=== PATIENT | male | born 1965 | race Caucasian/White ===

== ENCOUNTER 2018-03-28 19:02 | Observation (INO) | payer OTHER ==
[~2018-03-28] VITALS: Ht 177.8 cm; Wt 109.1 kg
[2018-03-28 19:13] VITALS: BP 160/91; PULSE 60; RESP 18; TEMP 98.7; O2SAT 98
[2018-03-28 19:53] LABS: BLOOD, URINE NEG (NEG); GLUCOSE,URINE 250 mg/dL (NEG); KETONE, URINE TRACE mg/dL (NEG); NITRITE,URINE NEG (NEG); URINE LEUKOCYTE ESTERASE NEG (NEG)
[2018-03-28 19:57] LABS: BILIRUBIN, URINE NEG (NEG); URINE COLOR AMBER (YELLW/STRAW)
[2018-03-28 19:58] LABS: RBC, URINE 0-2 /hpf (0-3); SQUAMOUS EPITHELIAL CELL URINE 0-5 /hpf (0-5); WBC, URINE 0-2 /hpf (0-5)
[2018-03-28 20:45] VITALS: O2SAT 97
[2018-03-28] MEDS ORDERED: MYCO500T PO (20:47)
[2018-03-28] MEDS ORDERED: APIX5TAB PO (20:48)
[2018-03-28] MEDS ORDERED: SODIUM CHLOR 0.9% 1000 ML INJ 1,000 ML IV SCH (20:53)
[2018-03-28 21:00] VITALS: BP 158/85; PULSE 78; RESP 18; O2SAT 98
[2018-03-28] MEDS ORDERED: LIDOCAINE VISCOUS 2% SOLN 15 ML UDC PO ONE (21:00)
[2018-03-28] MEDS ORDERED: FAMOTIDINE 20 MG TAB PO ONE (21:00)
[2018-03-28] MEDS ORDERED: MORPHINE SULFATE 4 MG/ML INJ IV PUSH ONE (21:00)
[2018-03-28] MEDS ORDERED: ALUMINUM/MAGNESIUM/SIMETH 30 ML CUP PO ONE (21:00)
[2018-03-28] MEDS ORDERED: SODIUM CHLORIDE 0.9% FLUSH 10 ML FLUSH IV FLUSH PRN ×2 (21:00→23:30)
--- NOTE | 2018-03-28 21:08 | PD ---
HPI Chief Complaint: Abdominal Pain Time Seen by Provider: 20:43 Travel History International Travel<30 days: No Contact w/Intl Traveler<30days: No Traveled to known affect area: No History of Present Illness HPI Patient is a 52-year-old male who presents the emergency room with complaints of abdominal pain. Patient reports that this morning, he had breakfast burritos from [employer], patient reports that shortly thereafter, he began to have abdominal pain. Patient reports that pain is located in his upper abdomen , reports good pain greatest to his epigastrium, reports that pain does radiate to his back. Patient reports that since 10:30 AM this morning, he has been feeling uncomfortable. Patient reports that he has been feeling nauseous, denies any emesis. Patient denies any constipation or diarrhea. Patient does have history of kidney stones, but reports that pain today feels different. Denies dysuria, urinary urgency or frequency. Denies hematuria. No fever/ chills. 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 ) Hypertension: Yes Tetanus Vaccination: < 5 Years Influenza Vaccination: No Past Surgical History Other Surgery: Yes (Lower back, IVC filter placement ) Social History Alcohol Use: Yes (OCC) Tobacco Use: No Substance Use: No Allergies-Medications (Allergen,Severity, Reaction): Coded Allergies: No Known Allergies (Unverified , 03/28/18) Reported Meds & Prescriptions Reported Meds & Active Scripts Active Reported Eliquis (Apixaban) 5 Mg Tab 5 Mg PO BID Mycophenolate (Mycophenolate Mofetil) 500 Mg Tab 1,000 Mg PO BID Review of Systems General / Constitutional: No: Fever Eyes: No: Visual changes HENT: No: Headaches Cardiovascular: No: Chest Pain or Discomfort Respiratory: No: Shortness of Breath Gastrointestinal: Positive: Nausea, Abdominal Pain, No: Vomiting Genitourinary: No: Dysuria Musculoskeletal: No: Pain Skin: No Rash Neurologic: No: Weakness Psychiatric: No: Depression Endocrine: No: Polydipsia Hematologic/Lymphatic: No: Easy Bruising Physical Exam Narrative GENERAL: moderate distress SKIN: Focused skin assessment warm/dry. HEAD: Atraumatic. Normocephalic. EYES: Pupils equal and round. No scleral icterus. No injection or drainage. ENT: No nasal bleeding or discharge. Mucous membranes pink and moist. NECK: Trachea midline. No JVD. CARDIOVASCULAR: Regular rate and rhythm. No murmur appreciated. RESPIRATORY: No accessory muscle use. Clear to auscultation. Breath sounds equal bilaterally. GASTROINTESTINAL: Abdomen soft, increased tenderness to upper abdomen with greatest tenderness to epigastrium , nondistended. there is no rebound or guarding on exam. Hepatic and splenic margins not palpable. MUSCULOSKELETAL: No obvious deformities. No clubbing. No cyanosis. No edema. NEUROLOGICAL: Awake and alert. No obvious cranial nerve deficits. Motor grossly within normal limits. Normal speech. PSYCHIATRIC: Appropriate mood and affect; insight and judgment normal. Data Data Last Documented VS Vital Signs Date Time Temp Pulse Resp B/P (MAP) Pulse Ox O2 Delivery O2 Flow Rate FiO2 03/28/18 20:45 97 Room Air 03/28/18 19:13 98.7 60 18 160/91 (114) Orders Orders Urinalysis - C+S If Indicated (03/28/18 19:45) Complete Blood Count With Diff (03/28/18 20:53) Comprehensive Metabolic Panel (03/28/18 20:53) Lipase (03/28/18 20:53) Prothrombin Time / Inr (Pt) (03/28/18 20:53) Act Partial Throm Time (Ptt) (03/28/18 20:53) Ct Abd/Pel W Iv Contrast(Rout) (03/28/18 20:53) Iv Access Insert/Monitor (03/28/18 20:53) Ecg Monitoring (03/28/18 20:53) Oximetry (03/28/18 20:53) Morphine Inj (Morphine Inj) (03/28/18 21:00) Sodium Chlor 0.9% 1000 Ml Inj (Ns 1000 M (03/28/18 20:53) Sodium Chloride 0.9% Flush (Ns Flush) (03/28/18 21:00) Electrocardiogram (03/28/18 20:53) Al-Mag Hy-Si 40-40-4 Mg/Ml Liq (Mag-Al P (03/28/18 21:00) Lidocaine 2% Viscous (Xylocaine 2% Visco (03/28/18 21:00) Famotidine (Pepcid) (03/28/18 21:00) Us Abdomen Gallbladder (03/28/18 ) Iohexol 350 Inj (Omnipaque 350 Inj) (03/28/18 22:49) Labs Laboratory Tests Test 03/28/18 19:48 03/28/18 21:00 Urine Color SUZY Urine Turbidity CLEAR Urine pH 6.0 Urine Specific [place] GREATER/EQUAL 1.030 Urine Protein NEG mg/dL Urine Glucose (UA) 250 mg/dL Urine Ketones TRACE mg/dL Urine Occult Blood NEG Urine Nitrite NEG Urine Bilirubin NEG Urine Urobilinogen GREATER/EQUAL 8.0 MG/DL Urine Leukocyte Esterase NEG Urine RBC 0-2 /hpf Urine WBC 0-2 /hpf Urine Squamous Epithelial Cells 0-5 /hpf Urine Bacteria NONE /hpf Microscopic Urinalysis Comment CULT NOT INDICATED White Blood Count 9.6 TH/MM3 Red Blood Count 5.01 MIL/MM3 Hemoglobin 14.5 GM/DL Hematocrit 43.4 % Mean Corpuscular Volume 86.7 FL Mean Corpuscular Hemoglobin 28.9 PG Mean Corpuscular Hemoglobin Concent 33.4 % Red Cell Distribution Width 12.4 % Platelet Count 185 TH/MM3 Mean Platelet Volume 8.3 FL Neutrophils (%) (Auto) 84.6 % Lymphocytes (%) (Auto) 9.6 % Monocytes (%) (Auto) 5.0 % Eosinophils (%) (Auto) 0.2 % Basophils (%) (Auto) 0.6 % Neutrophils # (Auto) 8.1 TH/MM3 Lymphocytes # (Auto) 0.9 TH/MM3 Monocytes # (Auto) 0.5 TH/MM3 Eosinophils # (Auto) 0.0 TH/MM3 Basophils # (Auto) 0.1 TH/MM3 CBC Comment DIFF FINAL Differential Comment Prothrombin Time 11.0 SEC Prothromb Time International Ratio 1.1 RATIO Activated Partial Thromboplast Time 24.5 SEC Blood Urea Nitrogen 13 MG/DL Creatinine 0.92 MG/DL Random Glucose 179 MG/DL Total Protein 7.6 GM/DL Albumin 4.0 GM/DL Calcium Level 9.1 MG/DL Alkaline Phosphatase 83 U/L Aspartate Amino Transf (AST/SGOT) 595 U/L Alanine Aminotransferase (ALT/SGPT) 393 U/L Total Bilirubin 2.1 MG/DL Sodium Level 139 MEQ/L Potassium Level 3.6 MEQ/L Chloride Level 105 MEQ/L Carbon Dioxide Level 28.3 MEQ/L Anion Gap 6 MEQ/L Estimat Glomerular Filtration Rate 87 ML/MIN Lipase 332 U/L MDM Medical Decision Making Medical Screen Exam Complete: Yes Emergency Medical Condition: Yes Medical Record Reviewed: Yes Interpretation(s) EKG at 2118: NSR at 62bpm, qt/qtc: 392/397, no acute st or t wave changes Vital Signs Date Time Temp Pulse Resp B/P (MAP) Pulse Ox O2 Delivery O2 Flow Rate FiO2 03/28/18 19:13 98.7 60 18 160/91 (114) 98 Differential Diagnosis pancreatitis, gastric ulcer, cholecystitis, kidney stone, pyelonephritis, aortic dissection Narrative Course Patient is a 52-year-old male who presents the emergency room with complaints of abdominal pain which began around 10:30 AM this morning. During the course of the patients emergency department visit, the patients history, examination, and differential diagnosis were reviewed with the patient. The patient was placed on a monitor car operator with oximetry and frequent blood pressure monitoring. The patient had an IV access obtained and blood work sent for analysis. The patient was initially provided IV fluids, IV morphine for pain relief. The patients laboratory studies were reviewed and remarkable for Laboratory Tests Test 03/28/18 19:48 03/28/18 21:00 Urine Color SUZY (YELLW/STRAW) Urine Turbidity CLEAR (CLEAR) Urine pH 6.0 (5.0-8.5) Urine Specific [place] GREATER/EQUAL 1.030 Urine Protein NEG mg/dL (NEG-TRACE) Urine Glucose (UA) 250 mg/dL (NEG) Urine Ketones TRACE mg/dL (NEG) Urine Occult Blood NEG (NEG) Urine Nitrite NEG (NEG) Urine Bilirubin NEG (NEG) Urine Urobilinogen GREATER/EQUAL 8.0 MG/DL Urine Leukocyte Esterase NEG (NEG) Urine RBC 0-2 /hpf (0-3) Urine WBC 0-2 /hpf (0-5) Urine Squamous Epithelial Cells 0-5 /hpf (0-5) Urine Bacteria NONE /hpf (NONE) Microscopic Urinalysis Comment CULT NOT INDICATED White Blood Count 9.6 TH/MM3 (4.0-11.0) Red Blood Count 5.01 MIL/MM3 (4.50-5.90) Hemoglobin 14.5 GM/DL (13.0-17.0) Hematocrit 43.4 % (39.0-51.0) Mean Corpuscular Volume 86.7 FL (80.0-100.0) Mean Corpuscular Hemoglobin 28.9 PG (27.0-34.0) Mean Corpuscular Hemoglobin Concent 33.4 % (32.0-36.0) Red Cell Distribution Width 12.4 % (11.6-17.2) Platelet Count 185 TH/MM3 (150-450) Mean Platelet Volume 8.3 FL (7.0-11.0) Neutrophils (%) (Auto) 84.6 % (16.0-70.0) Lymphocytes (%) (Auto) 9.6 % (9.0-44.0) Monocytes (%) (Auto) 5.0 % (0.0-8.0) Eosinophils (%) (Auto) 0.2 % (0.0-4.0) Basophils (%) (Auto) 0.6 % (0.0-2.0) Neutrophils # (Auto) 8.1 TH/MM3 (1.8-7.7) Lymphocytes # (Auto) 0.9 TH/MM3 (1.0-4.8) Monocytes # (Auto) 0.5 TH/MM3 (0-0.9) Eosinophils # (Auto) 0.0 TH/MM3 (0-0.4) Basophils # (Auto) 0.1 TH/MM3 (0-0.2) CBC Comment DIFF FINAL Differential Comment Prothrombin Time 11.0 SEC (9.8-11.6) Prothromb Time International Ratio 1.1 RATIO Activated Partial Thromboplast Time 24.5 SEC (24.3-30.1) Blood Urea Nitrogen 13 MG/DL (7-18) Creatinine 0.92 MG/DL (0.60-1.30) Random Glucose 179 MG/DL (74-106) Total Protein 7.6 GM/DL (6.4-8.2) Albumin 4.0 GM/DL (3.4-5.0) Calcium Level 9.1 MG/DL (8.5-10.1) Alkaline Phosphatase 83 U/L (45-117) Aspartate Amino Transf (AST/SGOT) 595 U/L (15-37) Alanine Aminotransferase (ALT/SGPT) 393 U/L (12-78) Total Bilirubin 2.1 MG/DL (0.2-1.0) Sodium Level 139 MEQ/L (136-145) Potassium Level 3.6 MEQ/L (3.5-5.1) Chloride Level 105 MEQ/L (98-107) Carbon Dioxide Level 28.3 MEQ/L (21.0-32.0) Anion Gap 6 MEQ/L (5-15) Estimat Glomerular Filtration Rate 87 ML/MIN (>89) Lipase 332 U/L (73-393) Radiology studies were reviewed and remarkable for Last Impressions Abdomen/Pelvis CT 03/28/182052 Signed Impressions: Service Date/Time: Wednesday, March 28, 2018 22:11 - CONCLUSION: 1. Appendix is not directly visualized. No pericecal inflammatory change. 2. Cholelithiasis. 3. Nonspecific mildly prominent prostate gland with prominent bilateral seminal vesicles. Although nonspecific, this can be seen in seminal vesiculitis and prostate CA. 4. IVC filter in place with significant anterior caval penetration of the filter legs. Dash Ellison MD Patient reevaluated, patient with transaminitis with a T bili of 2.1. AST 595 ALT 393 Gallbladder US: FINDINGS: LIVER: Normal in size and shape with increased echogenicity characteristic of hepatic steatosis. There is there are focal fatty sparing along the gallbladder wall fossa. COMMON DUCT: No intraluminal mass or stone visualized. GALLBLADDER: 11 is normal in size and shape with multiple echogenic gallstones with posterior shadowing. The gallbladder wall is at the upper limits of normal measuring 3 mm. There is no pericholecystic fluid. PANCREAS: The visualized portions are within normal limits. RIGHT KIDNEY: Normal in size, shape and echogenicity. There is slight prominence of the renal pelvis without definite hydronephrosis. CONCLUSION: 1. Cholelithiasis with borderline wall thickening and no pericholecystic fluid. 2. The common bile duct is mildly prominent at 9 mm with no evidence of choledocholithiasis in the visualized portion of the duct. 3. Hepatic steatosis and focal fatty sparing. Gallbladder US shows a prominent CBD, there is cholelithiasis with borderline wall thickening with no pericholecystic fluid. CT abdomen pelvis does show cholelithiasis, there appears to be calcified stone in the gallbladder neck, given his transaminitis with an elevated T bili, patient require admission to the hospital and for gi consultation Diagnosis Primary Impression: Cholelithiasis Additional Impression: Transaminitis Admitting Information Admitting Physician Requests: Observation Betty Morrison DO March 28, 2018 21:08
[2018-03-28 21:33] LABS: AUTOMATED NEUTROPHIL # 8.1 TH/MM3 (1.8-7.7); BASOPHIL # 0.1 TH/MM3 (0-0.2); BASOPHIL % 0.6 % (0.0-2.0); EOSINOPHIL % 0.2 % (0.0-4.0); HEMATOCRIT 43.4 % (39.0-51.0); HEMOGLOBIN 14.5 GM/DL (13.0-17.0); LYMPH % 9.6 % (9.0-44.0); LYMPHOCYTE # 0.9 TH/MM3 (1.0-4.8); MEAN CELL VOLUME 86.7 FL (80.0-100.0); MEAN CORPUSCULAR HEMOGLOBIN 28.9 PG (27.0-34.0); MEAN CORPUSCULAR HGB CONC 33.4 % (32.0-36.0); MEAN PLATELET VOLUME 8.3 FL (7.0-11.0); MONOCYTE # 0.5 TH/MM3 (0-0.9); NEUT % 84.6 % (16.0-70.0); PLATELET COUNT 185 TH/MM3 (150-450); RED BLOOD COUNT 5.01 MIL/MM3 (4.50-5.90); RED CELL DISTRIBUTION WIDTH 12.4 % (11.6-17.2); WHITE BLOOD COUNT 9.6 TH/MM3 (4.0-11.0)
[2018-03-28 21:43] LABS: CHLORIDE 105 MEQ/L (98-107); SODIUM (NA) 139 MEQ/L (136-145)
[2018-03-28 21:47] LABS: CALCIUM 9.1 MG/DL (8.5-10.1)
[2018-03-28 21:48] LABS: BICARBONATE 28.3 MEQ/L (21.0-32.0); BLOOD UREA NITROGEN 13 MG/DL (7-18); GLUCOSE,RANDOM 179 MG/DL (74-106)
[2018-03-28 21:50] LABS: ALT (GPT) 393 U/L (12-78); AST (GOT) 595 U/L (15-37)
[2018-03-28 21:51] LABS: CREATININE 0.92 MG/DL (0.60-1.30); GLOMERULAR FILTRATION RATE 87 ML/MIN (>89)
[2018-03-28 21:52] LABS: TOTAL BILIRUBIN ADULT 2.1 MG/DL (0.2-1.0); TOTAL PROTEIN 7.6 GM/DL (6.4-8.2)
[2018-03-28 21:53] LABS: ALKALINE PHOSPHATASE 83 U/L (45-117); INTERNATIONAL NORMALIZED RATIO 1.1 RATIO
--- NOTE | 2018-03-28 22:47 | RADRPT ---
EXAM DATE/TIME: 03/28/2018 22:11 [facility] COMPARISON: No previous studies available for comparison. INDICATIONS : Abdominal pain radiating to right flank. IV CONTRAST: 100 cc Omnipaque 350 (iohexol) IV ORAL CONTRAST: No oral contrast ingested. RADIATION DOSE: 21.35 CTDIvol (mGy) MEDICAL HISTORY : Hypertension. SURGICAL HISTORY : IVC Filter placement. Fusion, lumbar. ENCOUNTER: Initial ACUITY: 1 day PAIN SCALE: 7/10 LOCATION: Right flank TECHNIQUE: Volumetric scanning of the abdomen and pelvis was performed. Using automated exposure control and ad justment of the mA and/or kV according to patient size, radiation dose was kept as low as reasonably achievable to obtain optimal diagnostic quality images. DICOM format image data is available electro nically for review and comparison. FINDINGS: LOWER LUNGS: The visualized lower lungs are clear. LIVER: Homogeneous density without lesion. There is no dilation of the biliary tree. Calcified gallstone ne ar the gallbladder neck SPLEEN: Normal size without lesion. PANCREAS: Within normal limits. KIDNEYS: Kidneys demonstrate symmetrical enhancement without radiopaque renal calculi or hydronephrosis. ADRENAL GLANDS: Within normal limits. VASCULAR: There is no aortic aneurysm. IVC filter in place with significant anterior caval penetration by filte r legs. BOWEL/MESENTERY: Scattered colonic diverticula without evidence for diverticulitis. Appendix is not directly visualize d. However, no significant inflammatory change in the pericecal region. Small bowel are normal in tang iber. No free fluid or drainable fluid collections in the abdomen. ABDOMINAL WALL: Within normal limits. RETROPERITONEUM: There is no lymphadenopathy. BLADDER: No wall thickening or mass. REPRODUCTIVE: Nonspecific prominence of the prostate gland with prominent bilateral seminal vesicles. INGUINAL: Small fat containing bilateral renal hernia. MUSCULOSKELETAL: Within normal limits for patient age. CONCLUSION: 1. Appendix is not directly visualized. No pericecal inflammatory change. 2. Cholelithiasis. 3. Nonspecific mildly prominent prostate gland with prominent bilateral seminal vesicles. Although no nspecific, this can be seen in seminal vesiculitis and prostate CA. 4. IVC filter in place with significant anterior caval penetration of the filter legs. Dash Ellison MD on March 28, 2018 at 22:38 Board Certified Radiologist. This report was verified electronically.
[2018-03-28] MEDS ORDERED: IOHEXOL 350 MG/ML 10 ML VIAL (for RAD DIAG) IVCONTRAST ONE (22:49)
--- NOTE | 2018-03-28 23:03 | RADRPT ---
EXAM DATE/TIME: 03/28/2018 22:41 [facility] COMPARISON: No previous studies available for comparison. INDICATIONS : Right upper quadrant pain. MEDICAL HISTORY : Hypertension. Deep venous thrombosis. Renal calculi. CIDP. Anticoagulant therapy, Eliquis. SURGICAL HISTORY : Lower back. IVC filter palcement. Right knee surgery. ENCOUNTER: Initial ACUITY: 1 day PAIN SCORE: 5/10 LOCATION: Right upper quadrant TECHNOLOGIST IMPRESSION: MEASUREMENTS: LIVER: 15.9 cm length COMMON DUCT: 9 mm RIGHT KIDNEY: 14.4 x 5.6 x 5.7 cm FINDINGS: LIVER: Normal in size and shape with increased echogenicity characteristic of hepatic steatosis. There is th ere are focal fatty sparing along the gallbladder wall fossa. COMMON DUCT: No intraluminal mass or stone visualized. GALLBLADDER: 11 is normal in size and shape with multiple echogenic gallstones with posterior shadowing. The gallb ladder wall is at the upper limits of normal measuring 3 mm. There is no pericholecystic fluid. PANCREAS: The visualized portions are within normal limits. RIGHT KIDNEY: Normal in size, shape and echogenicity. There is slight prominence of the renal pelvis without defini te hydronephrosis. CONCLUSION: 1. Cholelithiasis with borderline wall thickening and no pericholecystic fluid. 2. The common bile duct is mildly prominent at 9 mm with no evidence of choledocholithiasis in the vi sualized portion of the duct. 3. Hepatic steatosis and focal fatty sparing. Avinash Cook MD on March 28, 2018 at 22:59 Board Certified Radiologist. This report was verified electronically.
[2018-03-28] MEDS ORDERED: POTASSIUM CHLORIDE IV SCH (23:24)
[2018-03-28] MEDS ORDERED: SODIUM CHLOR 0.9% IV SCH (23:24)
[2018-03-28 23:30] VITALS: BP 154/85; PULSE 78; RESP 18; TEMP 98.2; O2SAT 100
[2018-03-28] MEDS ORDERED: NALOXONE HCL 0.4 MG/ML AMP IV PUSH PRN (23:30)
[2018-03-28] MEDS ORDERED: MORPHINE SULFATE 2 MG/ML SYRINGE IV PUSH PRN (23:30)
[2018-03-28] MEDS ORDERED: MAGNESIUM HYDROXIDE SUSP 30 ML CUP PO PRN (23:30)
[2018-03-28] MEDS ORDERED: ACETAMINOPHEN 325 MG TAB PO PRN (23:30)
[2018-03-28] MEDS ORDERED: BISACODYL 10 MG SUPP RECTAL PRN (23:30)
[2018-03-28] MEDS ORDERED: LACTULOSE SYRUP 20 GM/30 ML CUP PO PRN (23:30)
[2018-03-28] MEDS ORDERED: SENNOSIDES 8.6 MG TAB PO PRN (23:30)
[2018-03-28] MEDS ORDERED: MORPHINE SULFATE 4 MG/ML INJ IV PUSH PRN (23:30)
[2018-03-28] MEDS ORDERED: ONDANSETRON HCL 4 MG/2 ML VIAL IVP PRN (23:30)
[2018-03-28] MEDS: MYCOPHENOLATE MOFETIL 500 MG TAB PO SCH (23:58)
[2018-03-29] VITALS (9 sets, daily range): BP systolic 127–176; BP diastolic 76–92; PULSE 52–60; RESP 16–22; TEMP 96–98.6; O2SAT 95–99
[2018-03-29] MEDS: POTASSIUM CHLORIDE INJ 10 MEQ in SODIUM CHLOR 0.9% 1000 ML INJ 1,000 ML IV SCH ×2 (01:23→10:55)
[2018-03-29 06:47] LABS: AUTOMATED NEUTROPHIL # 6.4 TH/MM3 (1.8-7.7); BASOPHIL % 0.1 % (0.0-2.0); EOSINOPHIL # 0.1 TH/MM3 (0-0.4); EOSINOPHIL % 0.6 % (0.0-4.0); HEMATOCRIT 40.3 % (39.0-51.0); HEMOGLOBIN 13.9 GM/DL (13.0-17.0); LYMPHOCYTE # 1.8 TH/MM3 (1.0-4.8); MEAN CELL VOLUME 87.5 FL (80.0-100.0); MEAN CORPUSCULAR HEMOGLOBIN 30.2 PG (27.0-34.0); MEAN CORPUSCULAR HGB CONC 34.5 % (32.0-36.0); MEAN PLATELET VOLUME 7.7 FL (7.0-11.0); MONO % 8.3 % (0.0-8.0); MONOCYTE # 0.7 TH/MM3 (0-0.9); PLATELET COUNT 171 TH/MM3 (150-450); RED CELL DISTRIBUTION WIDTH 12.5 % (11.6-17.2)
[2018-03-29 06:57] LABS: CHLORIDE 108 MEQ/L (98-107); SODIUM (NA) 142 MEQ/L (136-145)
[2018-03-29 07:03] LABS: ALBUMIN 3.7 GM/DL (3.4-5.0); BICARBONATE 29.7 MEQ/L (21.0-32.0); CALCIUM 8.7 MG/DL (8.5-10.1); GLUCOSE,RANDOM 143 MG/DL (74-106)
[2018-03-29 07:04] LABS: BLOOD UREA NITROGEN 11 MG/DL (7-18)
[2018-03-29 07:06] LABS: ALT (GPT) 605 U/L (12-78)
[2018-03-29 07:07] LABS: AST (GOT) 589 U/L (15-37); CREATININE 0.83 MG/DL (0.60-1.30); GLOMERULAR FILTRATION RATE 98 ML/MIN (>89)
[2018-03-29 07:08] LABS: TOTAL BILIRUBIN ADULT 1.4 MG/DL (0.2-1.0)
[2018-03-29 07:09] LABS: ALKALINE PHOSPHATASE 87 U/L (45-117)
--- NOTE | 2018-03-29 08:06 | EKG ---
Date Performed: 03/28/2018 Time Performed: 21:19:50 PTAGE: 52 years EKG: Sinus rhythm NORMAL ECG NO PREVIOUS TRACING DOCTOR: Haris Garcia Interpretating Date/Time 03/29/2018 08:04:55
[2018-03-29] MEDS ORDERED: MYCOPHENOLATE MOFETIL 500 MG TAB PO SCH (09:00)
[2018-03-29] MEDS: SODIUM CHLORIDE 0.9% FLUSH 10 ML FLUSH IV FLUSH SCH ×2 (09:08→21:00)
[2018-03-29] MEDS: MYCOPHENOLATE MOFETIL 500 MG TAB PO SCH ×2 (09:08→23:28)
--- NOTE | 2018-03-29 09:46 | HHI.HP ---
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 Patient states that after eating a burrito from [employer] he began to have significant right upper quadrant abdominal pain. Patient states that she has had similar complaints in the past although the pain did go away on its own and is demented. Patient states the pain radiates to his backside. He did state that he has a history of kidney stones thinking this could be the possible source. He does admit to associated nausea, denies any vomiting or diarrhea. Denies any fevers, chills, cough. Patient does report a history of bilateral DVT lower extremities with placement of IVC filter and Eliquis. Review of Systems Constitutional: DENIES: Fatigue, Fever, Chills Eyes: DENIES: Diplopia Respiratory: DENIES: Cough, Sputum production, Shortness of breath Cardiovascular: DENIES: Chest pain, Palpitations Gastrointestinal: COMPLAINS OF: Abdominal pain, Nausea, DENIES: Black stools, Bloody stools, Constipation, Diarrhea, Vomiting Musculoskeletal: DENIES: Joint pain Immunologic/allergic: DENIES: Eczema Neurologic: DENIES: Abnormal gait Psychiatric: COMPLAINS OF: Anxiety Except as stated in HPI: all other systems reviewed are Neg Past Family Social History Past Medical History Hypertension History of bilateral lower extremity DVT, on Eliquis with placement of IVC filter. Past Surgical History Unspecified lower back surgery IVC filter placement. Reported Medications Active Reported Eliquis (Apixaban) 5 Mg Tab 5 Mg PO BID Mycophenolate (Mycophenolate Mofetil) 500 Mg Tab 1,000 Mg PO BID Allergies: Coded Allergies: No Known Allergies (Unverified , 03/28/18) Active Ordered Medications Current Medications Medications (Trade) Dose Ordered Sig/Sakina Route Start Time Stop Time Status Last Admin (NS Flush) 2 ml UNSCH PRN IV FLUSH 03/28/18 21:00 (Cellcept) 1,000 mg Q12HR PO 03/28/18 23:30 03/29/18 09:08 (NS Flush) 2 ml UNSCH PRN IV FLUSH 03/28/18 23:30 (NS Flush) 2 ml BID IV FLUSH 03/29/18 09:00 03/29/18 09:08 (Tylenol) 650 mg Q4H PRN PO 03/28/18 23:30 (Zofran Inj) 4 mg Q6H PRN IVP 03/28/18 23:30 03/29/18 02:39 (Narcan Inj) 0.4 mg UNSCH PRN IV PUSH 03/28/18 23:30 (Milk Of Magnesia Liq) 30 ml Q12H PRN PO 03/28/18 23:30 (Senokot) 17.2 mg Q12H PRN PO 03/28/18 23:30 (Dulcolax Supp) 10 mg DAILY PRN RECTAL 03/28/18 23:30 (Lactulose Liq) 30 ml DAILY PRN PO 03/28/18 23:30 (Morphine Inj) 4 mg Q3H PRN IV PUSH 03/28/18 23:30 03/29/18 02:39 (Morphine Inj) 2 mg Q3H PRN IV PUSH 03/28/18 23:30 Potassium Chloride 10 meq/ Sodium Chloride 1,005 ml @ 100 mls/hr Q10H3M IV 03/29/18 00:00 03/29/18 10:55 Family History Paternal medical history significant for lung CA. Social History Denies any tobacco abuse. Does admit to occasional alcohol use. Denies any illicit drug use. Physical Exam Vital Signs Vital Signs Date Time Temp Pulse Resp B/P (MAP) Pulse Ox O2 Delivery O2 Flow Rate FiO2 03/29/18 08:36 96.9 52 20 139/83 (101) 98 03/29/18 01:30 96.6 60 22 176/92 (120) 97 03/29/18 01:15 98.6 85 18 149/82 (104) 100 03/28/18 23:30 98.2 78 18 154/85 (108) 100 Room Air 03/28/18 21:00 78 18 158/85 (109) 98 Room Air 03/28/18 20:45 97 Room Air 03/28/18 19:13 98.7 60 18 160/91 (114) 98 Physical Exam GENERAL: Well-developed, well-nourished patient in [facility]. SKIN: Warm and dry. No rash. HEAD: Normocephalic. Atraumatic. EYES: Pupils equal and round. No scleral icterus. No injection or drainage. ENT: No nasal bleeding or discharge. Mucous membranes pink and moist. NECK: Supple. Trachea midline. CARDIOVASCULAR: Regular rate and rhythm. S1, S2 noted. No murmur appreciated. RESPIRATORY: No accessory muscle use. Clear to auscultation. Breath sounds equal bilaterally. GASTROINTESTINAL: Abdomen soft, non-tender, nondistended. Normoactive bowel sounds x4. No pain to palpation MUSCULOSKELETAL: No obvious deformities. Extremities without clubbing, cyanosis , or edema. NEUROLOGICAL: Awake and alert. No obvious cranial nerve deficits. Motor grossly within normal limits. 5/5 muscle strength in bilateral upper and lower extremities. Normal speech. PSYCHIATRIC: Appropriate mood and affect; insight and judgment normal. Laboratory Laboratory Tests Test 03/28/18 19:48 03/28/18 21:00 03/29/18 06:10 Urine Color SUZY Urine Turbidity CLEAR Urine pH 6.0 Urine Specific [place] GREATER/EQUAL 1.030 Urine Protein NEG Urine Glucose (UA) 250 Urine Ketones TRACE Urine Occult Blood NEG Urine Nitrite NEG Urine Bilirubin NEG Urine Urobilinogen GREATER/EQUAL 8.0 Urine Leukocyte Esterase NEG Urine RBC 0-2 Urine WBC 0-2 Urine Squamous Epithelial Cells 0-5 Urine Bacteria NONE Microscopic Urinalysis Comment CULT NOT INDICATED White Blood Count 9.6 9.0 Red Blood Count 5.01 4.60 Hemoglobin 14.5 13.9 Hematocrit 43.4 40.3 Mean Corpuscular Volume 86.7 87.5 Mean Corpuscular Hemoglobin 28.9 30.2 Mean Corpuscular Hemoglobin Concent 33.4 34.5 Red Cell Distribution Width 12.4 12.5 Platelet Count 185 171 Mean Platelet Volume 8.3 7.7 Neutrophils (%) (Auto) 84.6 71.0 Lymphocytes (%) (Auto) 9.6 20.0 Monocytes (%) (Auto) 5.0 8.3 Eosinophils (%) (Auto) 0.2 0.6 Basophils (%) (Auto) 0.6 0.1 Neutrophils # (Auto) 8.1 6.4 Lymphocytes # (Auto) 0.9 1.8 Monocytes # (Auto) 0.5 0.7 Eosinophils # (Auto) 0.0 0.1 Basophils # (Auto) 0.1 0.0 CBC Comment DIFF FINAL DIFF FINAL Differential Comment Prothrombin Time 11.0 Prothromb Time International Ratio 1.1 Activated Partial Thromboplast Time 24.5 Blood Urea Nitrogen 13 11 Creatinine 0.92 0.83 Random Glucose 179 143 Total Protein 7.6 7.0 Albumin 4.0 3.7 Calcium Level 9.1 8.7 Alkaline Phosphatase 83 87 Aspartate Amino Transf (AST/SGOT) 595 589 Alanine Aminotransferase (ALT/SGPT) 393 605 Total Bilirubin 2.1 1.4 Sodium Level 139 142 Potassium Level 3.6 4.0 Chloride Level 105 108 Carbon Dioxide Level 28.3 29.7 Anion Gap 6 4 Estimat Glomerular Filtration Rate 87 98 Lipase 332 Result Diagram: 03/29/1810 03/29/18609 Imaging Last Impressions Abdomen/Pelvis CT 03/28/182052 Signed Impressions: Service Date/Time: Wednesday, March 28, 2018 22:11 - CONCLUSION: 1. Appendix is not directly visualized. No pericecal inflammatory change. 2. Cholelithiasis. 3. Nonspecific mildly prominent prostate gland with prominent bilateral seminal vesicles. Although nonspecific, this can be seen in seminal vesiculitis and prostate CA. 4. IVC filter in place with significant anterior caval penetration of the filter legs. Dash Ellison MD Gall Bladder Ultrasound 03/28/18 0000 Signed Impressions: Service Date/Time: Wednesday, March 28, 2018 22:41 - CONCLUSION: 1. Cholelithiasis with borderline wall thickening and no pericholecystic fluid. 2. The common bile duct is mildly prominent at 9 mm with no evidence of choledocholithiasis in the visualized portion of the duct. 3. Hepatic steatosis and focal fatty sparing. Avinash Cook MD Septic Shock Reassessment Septic shock perfusion: reassessment completed Caprini VTE Risk Assessment Caprini VTE Risk Assessment: No/Low Risk (score <= 1) Caprini Risk Assessment Model Point Value = 1 Point Value = 2 Point Value = 3 Point Value = 5 Age 41-60 Minor surgery BMI > 25 kg/m2 Swollen legs Varicose veins or History of unexplained or recurrent spontaneous Oral contraceptives or hormone replacement Sepsis (< 1 month) Serious lung disease, including pneumonia (< 1 month) Abnormal pulmonary function Acute myocardial infarction Congestive heart failure (< 1 month) History of inflammatory bowel disease Medical patient at bed rest Age 61-74 Arthroscopic surgery Major open surgery (> 45 min) Laparoscopic surgery (> 45 min) Malignancy Confined to bed (> 72 hours) Immobilizing plaster cast Central venous access Age >= 75 History of VTE Family history of VTE Factor V Leiden Prothrombin [id number] Lupus anticoagulant Anticardiolipin antibodies Elevated serum homocysteine Heparin-induced thrombocytopenia Other congenital or acquired thrombophilia Stroke (< 1 month) Elective arthroplasty Hip, pelvis, or leg fracture Acute spinal cord injury (< 1 month) Prophylaxis Regimen Total Risk Factor Score Risk Level Prophylaxis Regimen 0-1 Low Early ambulation 2 Moderate Order ONE of the following: *Sequential Compression Device (SCD) *Heparin 5000 units SQ BID 3-4 Higher Order ONE of the following medications: *Heparin 5000 units SQ TID *Enoxaparin/Lovenox 40 mg SQ daily (WT < 150 kg, CrCl > 30 mL/min) *Enoxaparin/Lovenox 30 mg SQ daily (WT < 150 kg, CrCl > 10-29 mL/min) *Enoxaparin/Lovenox 30 mg SQ BID (WT < 150 kg, CrCl > 30 mL/min) AND/OR *Sequential Compression Device (SCD) 5 or more Highest Order ONE of the following medications: *Heparin 5000 units SQ TID (Preferred with Epidurals) *Enoxaparin/Lovenox 40 mg SQ daily (WT < 150 kg, CrCl > 30 mL/min) *Enoxaparin/Lovenox 30 mg SQ daily (WT < 150 kg, CrCl > 10-29 mL/min) *Enoxaparin/Lovenox 30 mg SQ BID (WT < 150 kg, CrCl > 30 mL/min) AND *Sequential Compression Device (SCD) Assessment and Plan Problem List: (1) Cholelithiasis ICD Code: K80.20 - Calculus of gallbladder without cholecystitis without obstruction Status: Acute (2) Transaminitis ICD Code: R74.0 - Nonspecific elevation of levels of transaminase and lactic acid dehydrogenase [LDH] Status: Acute Assessment and Plan This is a pleasant 52-year-old male patient with a known medical history of hypertension and 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 Patient states that after eating a burrito from [employer] he began to have significant right upper quadrant abdominal pain. Cholelithiasis with associated right upper quadrant abdominal pain and nausea Transaminitis suspect secondary to above - Abdominal/pelvis CT reviewed showing cholelithiasis. Mildly prominent prostate gland. - GI consulted, appreciate input and recommendations. - Control pain, Morphine IV available per pain scale. Zofran available for nausea. - Will attempt clear liquid diet. Continue to monitor. Continue IVF. Was given 1L NS in ED. - LFTS elevated. Monitor trends. Have improved since presentation. - Supportive care. Hypertension, chronic: Continue home medications. BP elevated on presentation. Monitor trends. 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 Will continue home Cellcept. History of DVTs on Eliquis, with IVC filter: prophylaxis, SCDs. Ambulation. Will hold Eliquis for now if patient needs surgical procedure. Heparin for now. Problem Qualifiers (1) Cholelithiasis: Sakina Sheppard March 29, 2018 09:45
--- NOTE | 2018-03-29 18:01 | PD.CONS ---
HPI History of Present Illness This is a 52 year old male who was admitted to the hospital with history of worsening right upper quadrant and epigastric pain since yesterday. This started after eating lunch yesterday. The pain was noncolicky moderately severe in intensity with radiation to the back associated with nausea. He reports having milder pain off and on for the last several weeks. He denies any history of jaundice pruritus fever chills. He also denies heartburn dysphagia vomiting constipation diarrhea hematemesis melena hematochezia anorexia weight loss. [facility] Past Medical History Hypertension History of bilateral lower extremity DVT, on Eliquis with placement of IVC filter. 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 Coded Allergies: No Known Allergies (Unverified , 03/28/18) Medications As per nursing notes Family History Paternal medical history significant for lung CA. no history of colorectal cancer or polyps in the family Social History Denies any tobacco abuse. Does admit to occasional alcohol use. Denies any illicit drug use. Review of Systems Gastrointestinal: COMPLAINS OF: Abdominal pain, Nausea, DENIES: Black stools, Bloody stools, Constipation, Diarrhea, Vomiting, Difficulty Swallowing, Anorexia , Odynophagia, Swelling of Abdomen, Heartburn, Hematemesis GI Exam Vitals I&O Vital Signs Date Time Temp Pulse Resp B/P (MAP) Pulse Ox O2 Delivery O2 Flow Rate FiO2 03/29/18 16:00 98.5 56 20 143/86 (105) 99 03/29/18 11:25 96.9 53 20 140/82 (101) 95 03/29/18 08:36 96.9 52 20 139/83 (101) 98 03/29/18 01:30 96.6 60 22 176/92 (120) 97 03/29/18 01:15 98.6 85 18 149/82 (104) 100 03/28/18 23:30 98.2 78 18 154/85 (108) 100 Room Air 03/28/18 21:00 78 18 158/85 (109) 98 Room Air 03/28/18 20:45 97 Room Air 03/28/18 19:13 98.7 60 18 160/91 (114) 98 I/O 03/28/18 03/28/18 03/28/18 03/29/18 03/29/18 03/29/18 07:00 15:00 23:00 07:00 15:00 23:00 Intake Total 1000 ml 605 ml 400 ml Balance 1000 ml 605 ml 400 ml Intake IV Total 1000 ml 605 ml 400 ml # Voids 2 # Bowel Movements [address] scan of the abdomen shows calcified gallstone in the gallbladder. Ultrasound showed mildly dilated common bile duct. Laboratory Test 03/28/18 19:48 03/28/18 21:00 03/29/18 06:10 Urine Color SUZY Urine Turbidity CLEAR Urine pH 6.0 Urine Specific [place] GREATER/EQUAL 1.030 Urine Protein NEG mg/dL Urine Glucose (UA) 250 mg/dL Urine Ketones TRACE mg/dL Urine Occult Blood NEG Urine Nitrite NEG Urine Bilirubin NEG Urine Urobilinogen GREATER/EQUAL 8.0 MG/DL Urine Leukocyte Esterase NEG Urine RBC 0-2 /hpf Urine WBC 0-2 /hpf Urine Squamous Epithelial Cells 0-5 /hpf Urine Bacteria NONE /hpf Microscopic Urinalysis Comment CULT NOT INDICATED White Blood Count 9.6 TH/MM3 9.0 TH/MM3 Red Blood Count 5.01 MIL/MM3 4.60 MIL/MM3 Hemoglobin 14.5 GM/DL 13.9 GM/DL Hematocrit 43.4 % 40.3 % Mean Corpuscular Volume 86.7 FL 87.5 FL Mean Corpuscular Hemoglobin 28.9 PG 30.2 PG Mean Corpuscular Hemoglobin Concent 33.4 % 34.5 % Red Cell Distribution Width 12.4 % 12.5 % Platelet Count 185 TH/MM3 171 TH/MM3 Mean Platelet Volume 8.3 FL 7.7 FL Neutrophils (%) (Auto) 84.6 % 71.0 % Lymphocytes (%) (Auto) 9.6 % 20.0 % Monocytes (%) (Auto) 5.0 % 8.3 % Eosinophils (%) (Auto) 0.2 % 0.6 % Basophils (%) (Auto) 0.6 % 0.1 % Neutrophils # (Auto) 8.1 TH/MM3 6.4 TH/MM3 Lymphocytes # (Auto) 0.9 TH/MM3 1.8 TH/MM3 Monocytes # (Auto) 0.5 TH/MM3 0.7 TH/MM3 Eosinophils # (Auto) 0.0 TH/MM3 0.1 TH/MM3 Basophils # (Auto) 0.1 TH/MM3 0.0 TH/MM3 CBC Comment DIFF FINAL DIFF FINAL Differential Comment Prothrombin Time 11.0 SEC Prothromb Time International Ratio 1.1 RATIO Activated Partial Thromboplast Time 24.5 SEC Blood Urea Nitrogen 13 MG/DL 11 MG/DL Creatinine 0.92 MG/DL 0.83 MG/DL Random Glucose 179 MG/DL 143 MG/DL Total Protein 7.6 GM/DL 7.0 GM/DL Albumin 4.0 GM/DL 3.7 GM/DL Calcium Level 9.1 MG/DL 8.7 MG/DL Alkaline Phosphatase 83 U/L 87 U/L Aspartate Amino Transf (AST/SGOT) 595 U/L 589 U/L Alanine Aminotransferase (ALT/SGPT) 393 U/L 605 U/L Total Bilirubin 2.1 MG/DL 1.4 MG/DL Sodium Level 139 MEQ/L 142 MEQ/L Potassium Level 3.6 MEQ/L 4.0 MEQ/L Chloride Level 105 MEQ/L 108 MEQ/L Carbon Dioxide Level 28.3 MEQ/L 29.7 MEQ/L Anion Gap 6 MEQ/L 4 MEQ/L Estimat Glomerular Filtration Rate 87 ML/MIN 98 ML/MIN Lipase 332 U/L Physical Examination HEENT: Pupils round and reactive to light; normocephalic; atraumatic; no jaundice. Throat is clear. NECK: Neck is supple, no JVD, no lymphadenopathy. CHEST: Chest is clear to auscultation and percussion. CARDIAC: Regular rate and rhythm with no murmur gallop or rubs. ABDOMEN: Tenderness in the right upper quadrant and epigastrium associated with mild guarding. No rigidity. No obvious masses palpable. No ascites bowel sounds present EXTREMITIES: No clubbing, cyanosis, or edema. SKIN: Normal; no rash; no jaundice. [employer]: No focal deficits; alert and oriented times three. Assessment and Plan Assessment: (1) Biliary colic ICD Codes: K80.50 - Calculus of bile duct without cholangitis or cholecystitis without obstruction (2) Cholelithiasis ICD Codes: K80.20 - Calculus of gallbladder without cholecystitis without obstruction Status: Acute (3) Choledocholithiasis ICD Codes: K80.50 - Calculus of bile duct without cholangitis or cholecystitis without obstruction Status: Acute (4) Transaminitis ICD Codes: R74.0 - Nonspecific elevation of levels of transaminase and lactic acid dehydrogenase [LDH] Status: Acute Plan 1. Patient very likely has cholelithiasis and choledocholithiasis. His symptoms suggest recurrent episodes of biliary colic with the present abnormal liver panel as a result of choledocholithiasis. Currently no evidence of cholangitis. 2. Remote possibility of other diseases causing transaminitis. These include infective hepatitis and autoimmune hepatitis. 3. Recommend labs and MRCP 4. Patient would need ERCP and removal of common bile duct stones prior to lap cholecystectomy. Problem Qualifiers (1) Cholelithiasis: Leonidas Coronado MD March 29, 2018 18:01
[2018-03-29 20:07] LABS: INTERNATIONAL NORMALIZED RATIO 1.1 RATIO; PROTHROMBIN TIME - PATIENT 11.4 SEC (9.8-11.6)
[2018-03-29 20:09] LABS: ALBUMIN 3.5 GM/DL (3.4-5.0)
[2018-03-29 20:11] LABS: DIRECT BILIRUBIN ADULT 0.6 MG/DL (0.0-0.2)
[2018-03-29 20:13] LABS: INDIRECT BILIRUBIN 0.8 MG/DL (0.0-0.8); TOTAL BILIRUBIN ADULT 1.4 MG/DL (0.2-1.0); TOTAL PROTEIN 6.8 GM/DL (6.4-8.2)
[2018-03-29] MEDS ORDERED: POTASSIUM CHLORIDE IV SCH (23:24)
[2018-03-29] MEDS ORDERED: SODIUM CHLOR 0.9% IV SCH (23:24)
[2018-03-29] MEDS: HEPARIN SODIUM - SQ 10,000 UNITS/ML VIAL SQ SCH (23:29)
[2018-03-30] MEDS: POTASSIUM CHLORIDE INJ 10 MEQ in SODIUM CHLOR 0.9% 1000 ML INJ 1,000 ML IV SCH ×3 (02:00→16:12)
[2018-03-30 03:43] VITALS: BP 131/78; PULSE 58; RESP 16; TEMP 98; O2SAT 98
[2018-03-30 07:28] VITALS: BP 136/81; PULSE 59; RESP 20; TEMP 98.3; O2SAT 98
[2018-03-30] MEDS: HEPARIN SODIUM - SQ 10,000 UNITS/ML VIAL SQ SCH (09:00)
[2018-03-30 10:54] VITALS: BP 169/91; PULSE 58; RESP 20; TEMP 99.5; O2SAT 98
[2018-03-30] MEDS: SODIUM CHLORIDE 0.9% FLUSH 10 ML FLUSH IV FLUSH SCH (11:03)
[2018-03-30] MEDS: MYCOPHENOLATE MOFETIL 500 MG TAB PO SCH (11:05)
[2018-03-30] MEDS ORDERED: VALS160T6 PO (11:16)
--- NOTE | 2018-03-30 11:51 | RADRPT ---
EXAM DATE: 03/30/2018 9:42 AM EDT AGE/SEX: 52 years / Male INDICATIONS: Abdominal pain. CLINICAL DATA: This is the patient's subsequent encounter. Patient reports that signs and symptoms h ave been present for 2 days and indicates a pain score of 3/10. MEDICAL/SURGICAL HISTORY: . gallstones . IVC filter COMPARISON: No prior [facility] exams available for comparison. TECHNIQUE: Multiplanar, multisequence images of the abdomen were obtained without contrast including dedicated cholangiographic images. FINDINGS: LIVER: The liver is homogeneous and normal in signal intensity with no focal defects. INTRAHEPATIC BILE DUCTS: There is mild intrahepatic biliary ductal dilatation. COMMON BILE DUCT: Common bile duct is mildly dilated at approximately 8 mm. No definite filling defe cts are seen. GALLBLADDER: There are multiple stones in the gallbladder. The gallbladder wall is not thickened. Th ere is no fluid around the gallbladder. PANCREAS: The pancreas appears normal in signal with no focal parenchymal abnormalities. The pancrea tic duct is normal in caliber with no filling defects, or obstructing lesions identified. CONCLUSION: 1. Multiple stones in the gallbladder. 2. There is mild dilatation of the common bile duct 8 mm. 3. There is mild dilatation of the biliary ducts. Electronically signed by: Santana Vences MD 03/30/2018 10:03 AM EDT
[2018-03-30 12:23] LABS: ALBUMIN 3.6 GM/DL (3.4-5.0); AST (GOT) 180 U/L (15-37); BICARBONATE 27.6 MEQ/L (21.0-32.0); BLOOD UREA NITROGEN 9 MG/DL (7-18); CALCIUM 8.4 MG/DL (8.5-10.1); CHLORIDE 110 MEQ/L (98-107); CREATININE 0.75 MG/DL (0.60-1.30); GLOMERULAR FILTRATION RATE 110 ML/MIN (>89); GLUCOSE,RANDOM 99 MG/DL (74-106); SODIUM (NA) 145 MEQ/L (136-145)
[2018-03-30 12:31] LABS: ALKALINE PHOSPHATASE 86 U/L (45-117); ALT (GPT) 401 U/L (12-78); TOTAL BILIRUBIN ADULT 0.8 MG/DL (0.2-1.0); TOTAL PROTEIN 6.9 GM/DL (6.4-8.2)
[2018-03-30] MEDS ORDERED: VALSARTAN 80 MG TAB PO SCH (13:00)
[2018-03-30] MEDS ORDERED: HYDROCHLOROTHIAZIDE 25 MG TAB PO SCH (13:00)
[2018-03-30 15:54] VITALS: BP 157/75; PULSE 57; RESP 18; TEMP 98.7; O2SAT 96
--- NOTE | 2018-03-30 16:42 | HHI.PR ---
Subjective Remarks late entry, patient seen around 11am Follow-up on patient with cholelithiasis, biliary colic. Patient seen and examined. Patient able tolerate clear liquid diet without any complaints of abdominal pain. He denies any complaints of nausea or vomiting. Denies any fever or chills. Denies any chest pain or shortness of breath. Denies any urinary complaints, diarrhea or constipation. Objective Vitals Vital Signs Date Time Temp Pulse Resp B/P (MAP) Pulse Ox O2 Delivery O2 Flow Rate FiO2 03/30/18 15:54 98.7 57 18 157/75 (102) 96 03/30/18 10:54 99.5 58 20 169/91 (117) 98 03/30/18 07:28 98.3 59 20 136/81 (99) 98 03/30/18 03:43 98.0 58 16 131/78 (95) 98 03/29/18 23:51 97.9 57 16 127/76 (93) 97 03/29/18 21:21 98.1 60 16 132/82 (99) 97 03/29/18 20:00 96.0 55 20 155/88 (110) 99 I/O 03/29/18 03/29/18 03/29/18 03/30/18 03/30/18 03/30/18 06:59 14:59 22:59 06:59 14:59 22:59 Intake Total 1005 ml 720 ml 500 ml Output Total 600 ml Balance 1005 ml 720 ml 500 ml -600 ml Intake Oral 720 ml IV Total 1005 ml 500 ml Output Urine Total 600 ml # Voids 2 4 # Bowel Movements 0 0 0 Result Diagram: 03/29/18 0610 03/30/18 1050 Imaging Last Impressions Cholangiopancreatography MRI 03/30/18 0000 Signed Impressions: CONCLUSION: Abdomen/Pelvis CT 03/28/182052 Signed Impressions: Service Date/Time: Wednesday, March 28, 2018 22:11 - CONCLUSION: 1. Appendix is not directly visualized. No pericecal inflammatory change. 2. Cholelithiasis. 3. Nonspecific mildly prominent prostate gland with prominent bilateral seminal vesicles. Although nonspecific, this can be seen in seminal vesiculitis and prostate CA. 4. IVC filter in place with significant anterior caval penetration of the filter legs. Dash Ellison MD Gall Bladder Ultrasound 03/28/18 0000 Signed Impressions: Service Date/Time: Wednesday, March 28, 2018 22:41 - CONCLUSION: 1. Cholelithiasis with borderline wall thickening and no pericholecystic fluid. 2. The common bile duct is mildly prominent at 9 mm with no evidence of choledocholithiasis in the visualized portion of the duct. 3. Hepatic steatosis and focal fatty sparing. Avinash Cook MD Objective Remarks GENERAL: Well-developed, well-nourished male patient in [place]. Awake and alert. Appears comfortable. is at the bedside. SKIN: Warm and dry. No rash. HEAD: Normocephalic. Atraumatic. EYES: Pupils equal and round. No scleral icterus. No injection or drainage. ENT: No nasal bleeding or discharge. Mucous membranes pink and moist. NECK: Supple. Trachea midline. CARDIOVASCULAR: Regular rate and rhythm. S1, S2 noted. No murmur appreciated. RESPIRATORY: Nonlabored. Clear to auscultation. Breath sounds equal bilaterally. GASTROINTESTINAL: Abdomen soft, non-tender, nondistended. Normoactive bowel sounds x4. MUSCULOSKELETAL: No obvious deformities. Extremities without clubbing, cyanosis , or edema. NEUROLOGICAL: Awake and alert. No obvious cranial nerve deficits. Motor grossly within normal limits. 5/5 muscle strength in bilateral upper and lower extremities. Normal speech. PSYCHIATRIC: Appropriate mood and affect; insight and judgment normal. 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 Patient states that after eating a burrito from [employer] he began to have significant right upper quadrant abdominal pain. Cholelithiasis Choledocholithiasis Biliary colic Abdominal/pelvis CT reviewed showing cholelithiasis. Mildly prominent prostate gland. Status post MRCP revealing multiple stones in the gallbladder, mild dilatation of the common bile duct 8 mm and mild dilatation of the biliary ducts - GI following, no evidence of cholangitis. Discussed with GI -no plan for ERCP at this time, possibly passed gallstone. Diet to be advanced and if able to tolerate may be discharged later today from GI standpoint - Continue IV pain medication and IV antiemetics as needed - Discussed with patient in depth regarding need for general surgery follow-up as outpatient for possible elective cholecystectomy Transaminitis, suspect secondary to above LFTs trending down Hepatitis profile nonreactive - Avoid hepatotoxic agents - Follow-up on autoimmune workup as ordered by GI - continue to monitor LFTs as indicated Hypertension, chronic: - Continue home medications. 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 - continue home Cellcept. Incidental finding of nonspecific prominent prostate gland with prominent bilateral seminal vesicles -Patient has no urinary complaints at this time. Recommend follow-up as outpatient with PCP or urology for further evaluation History of DVTs on Eliquis, with IVC filter: prophylaxis, SCDs. Ambulation. Will hold Eliquis for now if patient needs surgical procedure. Heparin for now. Patient tolerated dinner. Cleared for discharge home from GI standpoint. Discharge patient to home Condition on discharge: Improved Heart healthy low fat low cholesterol Diet as tolerated Ad Rhea activity Rx written: None Follow-up with primary care physician, gastroenterology, urology and general surgery Problem Qualifiers (1) Cholelithiasis: Pamela Renner March 30, 2018 16:42
--- NOTE | 2018-03-30 16:43 | HHI.GIFU ---
Subjective Remarks Pt sitting in bed. Pain much improved. tolerating clears. Eager to go home. (Lesly Montelongo) Objective Vitals I&O Vital Signs Date Time Temp Pulse Resp B/P (MAP) Pulse Ox O2 Delivery O2 Flow Rate FiO2 03/30/18 15:54 98.7 57 18 157/75 (102) 96 03/30/18 10:54 99.5 58 20 169/91 (117) 98 03/30/18 07:28 98.3 59 20 136/81 (99) 98 03/30/18 03:43 98.0 58 16 131/78 (95) 98 03/29/18 23:51 97.9 57 16 127/76 (93) 97 03/29/18 21:21 98.1 60 16 132/82 (99) 97 03/29/18 20:00 96.0 55 20 155/88 (110) 99 I/O 03/29/18 03/29/18 03/29/18 03/30/18 03/30/18 03/30/18 07:00 15:00 23:00 07:00 15:00 23:00 Intake Total 605 ml 400 ml 720 ml 500 ml Output Total 600 ml Balance 605 ml 400 ml 720 ml 500 ml -600 ml Intake Oral 720 ml IV Total 605 ml 400 ml 500 ml Output Urine Total 600 ml # Voids 2 4 # Bowel Movements 0 0 0 Laboratory Laboratory Tests Test 03/29/18 19:30 03/30/18 10:40 03/30/18 10:50 Prothrombin Time 11.4 Prothromb Time International Ratio 1.1 Activated Partial Thromboplast Time 25.4 Total Bilirubin 1.4 0.8 Direct Bilirubin 0.6 Indirect Bilirubin 0.8 Aspartate Amino Transf (AST/SGOT) 315 180 Alanine Aminotransferase (ALT/SGPT) 508 401 Alkaline Phosphatase 88 86 Total Protein 6.8 6.9 Albumin 3.5 3.6 Urine Opiates Screen NEG Urine Barbiturates Screen NEG Urine Amphetamines Screen NEG Urine Benzodiazepines Screen NEG Urine Cocaine Screen NEG Urine Cannabinoids Screen NEG Blood Urea Nitrogen 9 Creatinine 0.75 Random Glucose 99 Calcium Level 8.4 Sodium Level 145 Potassium Level 3.5 Chloride Level 110 Carbon Dioxide Level 27.6 Anion Gap 7 Estimat Glomerular Filtration Rate 110 Hepatitis A IgM Antibody NONREACTIVE Hepatitis B Surface Antigen NONREACTIVE Hepatitis B Core IgM Antibody NONREACTIVE Hepatitis C IgG Antibody NONREACTIVE Imaging Last Impressions Cholangiopancreatography MRI 03/30/18 0000 Signed Impressions: CONCLUSION: Abdomen/Pelvis CT 03/28/182052 Signed Impressions: Service Date/Time: Wednesday, March 28, 2018 22:11 - CONCLUSION: 1. Appendix is not directly visualized. No pericecal inflammatory change. 2. Cholelithiasis. 3. Nonspecific mildly prominent prostate gland with prominent bilateral seminal vesicles. Although nonspecific, this can be seen in seminal vesiculitis and prostate CA. 4. IVC filter in place with significant anterior caval penetration of the filter legs. Dash Ellison MD Gall Bladder Ultrasound 03/28/18 0000 Signed Impressions: Service Date/Time: Wednesday, March 28, 2018 22:41 - CONCLUSION: 1. Cholelithiasis with borderline wall thickening and no pericholecystic fluid. 2. The common bile duct is mildly prominent at 9 mm with no evidence of choledocholithiasis in the visualized portion of the duct. 3. Hepatic steatosis and focal fatty sparing. Avinash Cook MD Physical Exam HEENT: PERRL; normocephalic; atraumatic; no jaundice. CHEST: CTA CARDIAC: RRR ABDOMEN: Soft, nondistended, nontender; no hepatosplenomegaly; bowel sounds are present in all four quadrants. EXTREMITIES: No clubbing, cyanosis, or edema. SKIN: Normal; no rash; no jaundice. [employer]: No focal deficits; alert and oriented times three. (Lesly Montelongo [facility]) Assessment and Plan Assessment: (1) Biliary colic ICD Codes: K80.50 - Calculus of bile duct without cholangitis or cholecystitis without obstruction (2) Cholelithiasis ICD Codes: K80.20 - Calculus of gallbladder without cholecystitis without obstruction Status: Acute (3) Choledocholithiasis ICD Codes: K80.50 - Calculus of bile duct without cholangitis or cholecystitis without obstruction Status: Acute (4) Transaminitis ICD Codes: R74.0 - Nonspecific elevation of levels of transaminase and lactic acid dehydrogenase [LDH] Status: Acute Plan ASSESSMENT - abd pain, elevated LFTs - Patient very likely has cholelithiasis and choledocholithiasis. His symptoms suggest recurrent episodes of biliary colic with the present abnormal liver panel as a result of choledocholithiasis. Currently no evidence of cholangitis, Remote possibility of other diseases causing transaminitis. These include infective hepatitis and autoimmune hepatitis. 03/30/18 MRCP shows mult stones GB, mild dilatation CBD 8mm, mild dil biliary ducts. LFTs trending down. hep panel negative, ANT, ASMA are pending. tolerating clears. pt visiting, would like to go home. d/w SHIRA Pierce PLAN - heart healthy dinner (no pizza) - no ERCP at this time -ok to D/C from GI standpoint if he tolerates his dinner pt seen by myself and Dr Mcallister and this note is on his behalf (Lesly Montelongo) Physician Comments Patient seen and examined Agree with above Continue with current supportive care Monitor labs (Arcadio Mcallister MD) Problem Qualifiers (1) Cholelithiasis: Lesly Montelongo March 30, 2018 16:43 Arcadio Mcallister MD March 30, 2018 22:41
[2018-03-31] MEDS ORDERED: VALSARTAN 160 MG TAB PO SCH (09:00)
== END 2018-03-30 21:07 | disposition home or self-care (01) ==
LOC: PHED 19:02 → PHEDA 23:21 → PH3B 03-29 01:20 → NEPGCP 03-29 21:17
PROVIDERS: ADMIT Internal Medicine; ATTEND Internal Medicine
DX: K80.70 Calculus of gallbladder and bile duct without cholecystitis without obstruction (principal); R74.0 Nonspecific elevation of levels of transaminase and lactic acid dehydrogenase [LDH]; I10 Essential (primary) hypertension; R79.89 Other specified abnormal findings of blood chemistry; G61.81 Chronic inflammatory demyelinating polyneuritis; K76.0 Fatty (change of) liver, not elsewhere classified; K83.8 Other specified diseases of biliary tract; G62.9 Polyneuropathy, unspecified; Z86.718 Personal history of other venous thrombosis and embolism; Z79.01 Long term (current) use of anticoagulants
CPT/HCPCS: 74177; 74181; 76377; 76705; 80053; 80074; 80307; 81001; 83690; 85025; 85610; 85730; 86038; 86255; 93005; 96361; 96365; 96366; 96372; 96374; 96375; 99285; G0378; J1644; J2270; J2405; J3480; J7030; J7517; Q9967; 80076